=== PATIENT | female | born 1955 | race Caucasian/White ===

== ENCOUNTER 2016-07-29 08:32 | Emergency (ER) | payer OTHER ==
[~2016-07-29] VITALS: Ht 167.6 cm; Wt 56.6 kg
[2016-07-29 08:35] VITALS: BP 155/84; PULSE 76; RESP 16; TEMP 97.7; O2SAT 96
[2016-07-29 09:00] VITALS: BP 159/82; PULSE 66; RESP 18; O2SAT 97
[2016-07-29] MEDS ORDERED: TETANUS/DIPHTHERIA TOXOID ADULT 0.5 ML VIAL IM ONE (09:00)
[2016-07-29] MEDS ORDERED: IBUPROFEN 600 MG TAB PO ONE (09:00)
[2016-07-29] MEDS ORDERED: CELE20TA PO (09:06)
--- NOTE | 2016-07-29 09:21 | PD ---
HPI Chief Complaint: Fall Time Seen by Provider: 08:49 Travel History International Travel<30 days: No Contact w/Intl Traveler<30days: No Traveled to known affect area: No History of Present Illness HPI Patient is a 60-year-old female with a history of traumatic brain injury leaving left-sided deficits presents emergency department today after trip and fall last night. Patient states she was walking in the bathroom and just tripped over nothing and fell to the floor impacting the left side of her face. She is also complaining of a bruise tenderness to the left hip. Denies any neck pain abdominal pain chest pain shortness of breath. Denies any syncopal events before during or after the fall. PFSH Past Medical History Depression: Yes Medical other: Yes (closed head injury) Tetanus Vaccination: > 5 Years Influenza Vaccination: No ?: Not Menopausal: Yes Past Surgical History Surgical History: No Previous Surgery Social History Alcohol Use: Yes (socially) Tobacco Use: Yes Substance Use: No Allergies-Medications (Allergen,Severity, Reaction): Coded Allergies: No Known Allergies (Unverified , 07/29/16) Reported Meds & Prescriptions Reported Meds & Active Scripts Active Ibuprofen 600 Mg Tab 600 Mg PO Q8HR PRN Reported Celexa (Citalopram Hydrobromide) 20 Mg Tab 20 Mg PO DAILY Review of Systems Except as stated in HPI: all other systems reviewed are Neg Physical Exam Narrative GENERAL: Well-developed well-nourished no apparent distress SKIN: Warm and dry. HEAD: No cardoza signs no raccoons eyes TMs clear bilaterally, there is periorbital ecchymosis and edema of the left eye this is fairly mild. There is also small ecchymosis and edema over the frontal bone primarily on the right side. There is a small abrasion in the inferior orbital rim. Skin is intact.. Normocephalic. EYES: Pupils equal and round. No scleral icterus. No injection or drainage. ENT: No nasal bleeding or discharge. Mucous membranes pink and moist. NECK: Trachea midline. No JVD. CARDIOVASCULAR: Regular rate and rhythm. No murmur appreciated. RESPIRATORY: No accessory muscle use. Clear to auscultation. Breath sounds equal bilaterally. GASTROINTESTINAL: Abdomen soft, non-tender, nondistended. Hepatic and splenic margins not palpable. MUSCULOSKELETAL: No obvious deformities. No clubbing. No cyanosis. No edema. There is bruising and tenderness to the left greater trochanter. Range of motion intact. Patient states she's been ambulatory since the event. Left knee is normal left ankle is normal. Right lower extremity bilateral upper extremities are atraumatic and nontender. Pulses motor and sensory intact and compartments are soft. NEUROLOGICAL: Awake and alert. No obvious cranial nerve deficits. Motor grossly within normal limits. Normal speech. PSYCHIATRIC: Appropriate mood and affect; insight and judgment normal. Data Data Last Documented VS Vital Signs Date Time Temp Pulse Resp B/P Pulse Ox O2 Delivery O2 Flow Rate FiO2 07/29/16 10:13 60 18 162/75 95 07/29/16 09:00 Room Air 07/29/16 08:35 97.7 Orders Tetanus/Diphtheria Tox Adult (Tetanus/Di (07/29/16 09:00) Ibuprofen (Motrin) (07/29/16 09:00) Ct Brain W/O Iv Contrast(Rout) (07/29/16 ) Ct Facial Bones W/O Iv Cont (07/29/16 ) Ct Cerv Spine W/O Contrast (07/29/16 ) Hip, Uni(Ap&Lat) W Ap Pelvis (07/29/16 ) MDM Medical Decision Making Medical Screen Exam Complete: Yes Emergency Medical Condition: Yes Differential Diagnosis Closed head injury, facial fracture, abrasion, neck fracture, Hip fracture. Narrative Course Patient appears well in no apparent distress. Tetanus updated, ibuprofen given in the emergency department. CT head C-spine and facial bones as well as x-ray of the left hip and pelvis are all negative albeit with a question of possible nasal bone fracture unclear if it's acute or chronic. Patient has no septal hematoma. Nose is midline. No swelling.. Patient related in the emergency department prior to discharge. She appears well and is no indication further workup at this time. Diagnosis Primary Impression: Closed head injury Qualified Code: S09.90XA - Closed head injury, initial encounter Additional Impressions: Facial contusion Contusion, hip Med/Other Pt SpecificInfo: Prescription(s) given Scripts Ibuprofen 600 Mg [id number] Mg PO Q8HR PRN (PAIN) #15 TAB Ref 0 Prov:Roby Philip MD 07/29/16 Disposition: 01 DISCHARGE HOME Condition: Stable Roby Philip MD Jul 29, 2016 09:21
--- NOTE | 2016-07-29 09:47 | RADHPO ---
EXAM DATE/TIME: 07/29/2016 09:26 [facility] COMPARISON: No previous studies available for comparison. INDICATIONS : Patient fell last night. Frontal head pain. RADIATION DOSE: 59.28 CTDIvol (mGy) MEDICAL HISTORY : History of old brain injury. SURGICAL HISTORY : None. ENCOUNTER: Initial ACUITY: 2 days PAIN SCALE: 3/10 LOCATION: frontal TECHNIQUE: Multiple contiguous axial images were obtained of the head. Using automated exposure control and adj ustment of the mA and/or kV according to patient size, radiation dose was kept as low as reasonably a chievable to obtain optimal diagnostic quality images. FINDINGS: CEREBRUM: The ventricles are normal for age. No evidence of midline shift, mass lesion, hemorrhage or acute in farction. No extra-axial fluid collections are seen. POSTERIOR FOSSA: The cerebellum and brainstem are intact. The 4th ventricle is midline. The cerebellopontine angle i s unremarkable. EXTRACRANIAL: The visualized portion of the orbits is intact. There is a probable fracture involving the left nasal bone of indeterminate age. SKULL: The calvaria is intact. No evidence of skull fracture. CONCLUSION: 1. No acute intracranial abnormality. 2. Probable fracture involving the left nasal bone of indeterminate age. Clinical correlation is carrol mmended. Roby Delacruz MD on July 29, 2016 at 9:43 Board Certified Radiologist. This report was verified electronically.
--- NOTE | 2016-07-29 09:52 | RADHPO ---
EXAM DATE/TIME: 07/29/2016 09:26 [facility] COMPARISON: No previous studies available for comparison. INDICATIONS : Patient fell last night. Left facial injury and nose pain. RADIATION DOSE: 28.68 CTDIvol (mGy) MEDICAL HISTORY : History of old brain injury. SURGICAL HISTORY : None. ENCOUNTER: Initial ACUITY: 2 days PAIN SCORE: 3/10 LOCATION: Left facial TECHNIQUE: Volumetric scanning of the facial bones was performed. Using automated exposure control and adjustme nt of the mA and/or kV according to patient size, radiation dose was kept as low as reasonably achiev able to obtain optimal diagnostic quality images. FINDINGS: ORBITS: The orbital and infraorbital osseous structures are intact. The retroconal structures have a normal configuration. No radiopaque foreign bodies are seen. NASAL BONE: The nasal bone and maxillary spine are intact ZYGOMATIC ARCHES: Symmetric without evidence of fracture. SINUSES: The maxillary, ethmoid and frontal sinuses are intact. No air-fluid levels seen. NASAL CAVITY: The nasal septum is intact and midline. The lacrimal ducts are intact. SOFT TISSUES: No radiopaque foreign bodies seen. There is soft tissue swelling over the frontal bone. INTRACRANIAL: No intracranial air seen. CRIBIFORM PLATE: Grossly intact. CONCLUSION: Soft tissue swelling over the frontal bone with no acute fracture or malalignment. Modesto San MD on July 29, 2016 at 9:48 Board Certified Radiologist. This report was verified electronically.
--- NOTE | 2016-07-29 10:00 | RADHPO ---
EXAM DATE/TIME: 07/29/2016 09:26 [facility] COMPARISON: No previous studies available for comparison. INDICATIONS : Patient fell last night. Neck pain. RADIATION DOSE: 21.96 CTDIvol (mGy) MEDICAL HISTORY : History of old brain injury. SURGICAL HISTORY : None. ENCOUNTER: Initial ACUITY: 2 days PAIN SCALE: 3/10 LOCATION: Bilateral neck TECHNIQUE: Volumetric scanning of the cervical spine was performed. Multiplanar reconstructions in the sagittal, coronal and oblique axial planes were performed. Using automated exposure control and adjustment o f the mA and/or kV according to patient size, radiation dose was kept as low as reasonably achievable to obtain optimal diagnostic quality images. FINDINGS: The sagittal reconstructions demonstrate normal alignment and normal prevertebral soft tissues. The d ens is intact and there is a normal atlantoaxial relationship. There are mild degenerative disc cartagena es at the C5-6 level. The axial images demonstrate that the vertebral bodies and posterior elements are intact. The soft ti ssues are within normal limits. There is no evidence of acute fracture or malalignment. There is a mi ld disc osteophyte complex at the C5-6 level. CONCLUSION: Negative trauma CT. Modesto San MD on July 29, 2016 at 9:57 Board Certified Radiologist. This report was verified electronically.
--- NOTE | 2016-07-29 10:04 | RADHPO ---
EXAM DATE/TIME: 07/29/2016 09:17 [facility] COMPARISON: No previous studies available for comparison. INDICATIONS : Left hip pain post fall. MEDICAL HISTORY : None. SURGICAL HISTORY : None. ENCOUNTER: Initial ACUITY: 2 days PAIN SCORE: 7/10 LOCATION: Left hip FINDINGS: Examination of the left hip was performed with AP Pelvis. The primary and secondary trabecular patte rn of the femoral neck is intact. The hip joint is of normal width without significant sclerosis or bony hypertrophy. The acetabulum is grossly intact. CONCLUSION: Negative trauma study. Modesto San MD on July 29, 2016 at 10:02 Board Certified Radiologist. This report was verified electronically.
[2016-07-29 10:13] VITALS: BP 162/75; PULSE 60; RESP 18; O2SAT 95
[2016-07-29] MEDS ORDERED: IBUP-232 PO (10:20)
== END 2016-07-29 10:33 | disposition home or self-care (01) ==
LOC: PHED 08:32
DX: S00.83XA Contusion of other part of head, initial encounter (principal); S70.02XA Contusion of left hip, initial encounter; W01.0XXA Fall on same level from slipping, tripping and stumbling without subsequent striking against object, initial encounter; Y93.01 Activity, walking, marching and hiking; Z23 Encounter for immunization
CPT/HCPCS: 70450; 70486; 72125; 73502; 90471; 90714